=== PATIENT | male | born 1940 | race Caucasian/White ===

== ENCOUNTER → 2017-11-15 | Outpatient (CLI) | payer MEDICARE, BC ==
[~2017-11-15] MED LIST: ALPR1TAB2 PO; ASPI-515 PO; CHOL100015 PO; FLUT12HF3 IH; GLIP5TAB10 PO; HCTZ PO; HYDR-3307 PO; INDO25CA5 PO; LEVO50TA PO; LOSA1TAB19 PO; METF10002 PO; OMEP40CA3 PO; REGADENOSON 0.4 MG/5 ML SYRINGE ONE; ROSU20TA PO; SERT100T5 PO; SITA50TA PO
== END | disposition home or self-care (01) ==
LOC: CFH 08:54
PROVIDERS: ATTEND Internal Medicine Cardiovascular Disease
DX: I25.10 Atherosclerotic heart disease of native coronary artery without angina pectoris (principal); I10 Essential (primary) hypertension
CPT/HCPCS: 78452; 93017; A9502; J2785